=== PATIENT | female | born 1990 | race Caucasian/White ===

== ENCOUNTER 2017-04-20 19:41 | Emergency (ER) | payer SELFPAY ==
[~2017-04-20] VITALS: Ht 160 cm; Wt 68.2 kg
[2017-04-20 19:46] VITALS: BP 140/80
[2017-04-20] MEDS ORDERED: ZOLP5 PO (19:46)
[2017-04-20 20:50] LABS: APPEARANCE,URINE CLOUDY (CLEAR); GLUCOSE, URINE (UA) NEGATIVE (NEGATIVE); KETONES,URINE 15 mg/dL (NEGATIVE); LEUKOCYTE ESTERASE ,URINE NEGATIVE (NEGATIVE); OCCULT BLOOD,URINE TRACE (NEGATIVE); PROTEIN,URINE TRACE (NEGATIVE)
[2017-04-20 20:53] LABS: ADD UA MICROSCOPIC YES
[2017-04-20 20:54] LABS: SQUAMOUS EPITHELIAL CELL,UR Many /LPF (None Seen)
== END 2017-04-20 21:37 | disposition left against medical advice (07) ==
LOC: EMS 19:43
DX: F30.9 Manic episode, unspecified (principal); F31.9 Bipolar disorder, unspecified
CPT/HCPCS: 99284